=== PATIENT | female | born 1985 | race Caucasian/White ===

== ENCOUNTER 2022-12-09 19:18 | Observation (INO) ==
--- NOTE | 2022-12-09 20:00 | Emergency Department Note ---
Impression & Plan Suicidal ideation, Diabetes mellitus, COVID-19, Acute hyperglycemia ED Provider Note Name: KAMI DARBY Age: 36 Sex: F Arrives Via: Walk-In Informant: Patient, boyfriend, girlfriend ED Provider: Thang River MD Chief Complaint: Suicidal ideation Impression: As per impressions above Medical Decision Makin-year-old female with a history of bipolar, borderline personality, type 2 diabetes, PTSD, anxiety, PNES, arrives for evaluation of suicidal ideation with plan to throw herself down a flight of stairs. Patient was just released a few days ago from another inpatient psychiatric facility and reportedly has been in multiple facilities over the last year for suicidal ideation. Patient was noted to be COVID-positive on discussion she admits she had a sore throat about 7 days ago that lasted 4 to 5 days. She had been exposed to someone in the psychiatric facility that may have had COVID. Patient is otherwise medically clear. She is a bit hyperglycemic but this is consistent with not taking her metformin though she was willing to take it here. Given her positive COVID status and suicidal ideation and voluntary status she is willing to be hospitalized at this facility. Hospitalist consulted for further management. Triage/Nursing Notes reviewed by Me Differentials:Mood disorder, infection, hypoglycemia, electrolyte abnormalities, cardiac sources, intracerebral event, toxicologic, trauma, neurologic, as well as other pathologies. Vital Signs: reviewed and remarkable for no significant abnormalities Interventions: Metformin 500 mg p.o. Labs:Reviewed and remarkable for hyperglycemia and positive COVID test. See other labs on chart reviewed by me Consults:Dr. Reilly the [facility] service Plan: Disposition:Hospitalization. Condition: Good History of Present Illness:36-year-old female arrives for evaluation of suicidal ideation. Patient states she was recently in an inpatient psychiatric facility where they stopped all of her medicines. She states she is getting significantly worse and wants to kill herself. She states she is severely depressed and anxious. Her plan is through herself all stairs/balcony to kill herself. She has already figured out which stairs she would use. Patient denies any actual attempt at killing herself quite yet but has been scratching at her arms. No attempt at harming yourself by overdose. She does admit alcohol use a few days ago as well as marijuana yesterday. She states inciting event is due to issues with recent divorce. Patient arrives with her boyfriend and girlfriend who are both from the area and thus had brought her from the [facility] for evaluation at our facility. Past History: Bipolar, borderline personality, type 2 diabetes, PTSD, anxiety, PNES Home Medications:See Below Allergies:PNC Vitals:Blood Pressure: 129/87, Pulse 94, RR 18, T 36.8C, O2 94% on RA Physical Exam: GENERAL: Patient is sad appearing and in minimal distress. RESPIRATORY: No dyspnea. Clear to auscultation and equal bilaterally. No wheeze, no rhonchi. CARDIOVASCULAR: Regular rate and rhythm.No murmurs, rubs, gallops appreciated. EXTREMITIES: Normal motion all extremities, no cyanosis, no edema. Left lower leg in an Aircast ankle boot which patient states she uses when her ankle and foot are hurting her. No recent injury or fracture. NEUROLOGIC: Alert and oriented, no focal neurologic deficit appreciated SKIN: No rash, no jaundice, no diaphoresis. PSYCH: Patient admits suicidal ideation to kill self by throwing off stairs/balcony. Admits depression anxiety. GCS: 15 ED Course: Times/Reassessments: Repeat evaluation patient stable she is agreeable to hospitalization for further management. Thang River MD Past Med/Surg History Medical History (Updated 12/10/22 @ 01:53 by Thang River MD) Ankle pain, left Anxiety and depression Diabetes mellitus GERD (gastroesophageal reflux disease) Hyperlipidemia Suicidal ideation Social History Smoking Status: Never smoker Feels Safe at Home: Yes Gender Identity: Female Allergies Allergies Allergy/AdvReac Type Severity Reaction Status Date / Time Penicillins Allergy Vomiting Verified 12/09/22 20:57 Home Meds Home Medications Medication Instructions Recorded Confirmed Lamictal 150 mg PO BID 12/09/22 12/09/22 aripiprazole 20 mg tablet (Abilify) 20 mg PO QAM 12/09/22 12/09/22 atorvastatin 20 mg PO 1XD 12/09/22 12/09/22 buspirone 10 mg tablet 10 mg PO TID 12/09/22 12/09/22 meloxicam 15 mg PO 1XD 12/09/22 12/09/22 metformin 500 mg tablet 500 mg PO BID 12/09/22 12/09/22 mirtazapine 0.5 - 1 tab PO HS 12/09/22 12/09/22 naltrexone See Rx Instructions .Route .COMPLEX 12/09/22 12/09/22 paroxetine HCl 60 mg PO 1XD Anxiety 12/09/22 12/09/22 topiramate 100 mg PO BID 12/09/22 12/09/22 Results & Data (ED) Vital Signs Vital Signs - 24 hr 12/09/22 19:20 12/09/22 19:36 12/09/22 23:25 Temperature 36.4 C L Temperature Source Temporal Artery Scan Pulse Rate 96 H Pulse Rate [Finger] Pulse Rhythm Regular Pulse Rhythm [Finger] Pulse Strength Normal Respiratory Rate 20 16 Respiratory Effort / Characteristics Non-Labored Spontaneous Non-Labored Respiratory Depth Normal Normal Respiratory Pattern Regular Blood Pressure 141/92 H Blood Pressure [Left Arm] Blood Pressure Mean 108 Blood Pressure Mean [Left Arm] Blood Pressure Position Sitting Blood Pressure Position [Left Arm] Pulse Oximetry 96 96 Oxygen Delivery Method Room Air Room Air Sepsis Recent Fever Within 48 Hours No Sepsis New/Unexplained Change in Mental Status N/A Sepsis Action Taken by Nursing No Action Required 12/09/22 23:59 Temperature 36.8 C Temperature Source Oral Pulse Rate Pulse Rate [Finger] 94 H Pulse Rhythm Pulse Rhythm [Finger] Regular Pulse Strength Respiratory Rate 18 Respiratory Effort / Characteristics Non-Labored Respiratory Depth Normal Respiratory Pattern Regular Blood Pressure Blood Pressure [Left Arm] 129/87 Blood Pressure Mean Blood Pressure Mean [Left Arm] 101 Blood Pressure Position Blood Pressure Position [Left Arm] Sitting Pulse Oximetry 94 Oxygen Delivery Method Room Air Sepsis Recent Fever Within 48 Hours Sepsis New/Unexplained Change in Mental Status Sepsis Action Taken by Nursing Laboratory Data 12/09/22 19:34 12/09/22 19:34 Lab Results 12/09/22 12/09/22 12/09/22 Range/Units 19:34 19:34 19:34 WBC 14.74 H (4.8-10.8) K/ul RBC 4.14 L (4.20-5.40) M/uL Hgb 12.8 (12.0-16.0) g/dl Hct 35.9 L (37.0-47.0) % MCV 86.7 (80.0-100.0) fL MCH 30.9 (25.0-34.0) pg MCHC 35.7 (32.0-36.0) g/dL RDW Std Deviation 37.2 (36.4-46.3) fL RDW Coeff of Nerissa 11.8 (11.5-14.5) % Plt Count 390 (130-400) K/uL MPV 10.1 (9.4-12.4) fL Immature Gran % (Auto) 0.7 % Neut % (Auto) 51.0 % Lymph % (Auto) 41.0 % [place] % (Auto) 4.2 % Eos % (Auto) 2.8 % Baso % (Auto) 0.3 % Neut # (Auto) 7.51 H (1.40-6.50) K/uL Lymph # (Auto) 6.05 H (1.2-3.4) K/uL [place] # (Auto) 0.62 H (0.11-0.59) K/uL Eos # (Auto) 0.42 (0-0.50) K/uL Baso # (Auto) 0.04 (0-0.2) K/uL Immature Gran # (Auto) 0.10 (0.01-0.20) K/uL Sodium 134 L (136-145) mmol/L Potassium 3.5 (3.5-5.1) mmol/L Chloride 99 (98-107) mmol/L Carbon Dioxide 25 (21-32) mmol/L Anion Gap 10 (3-11) BUN 18 (6-23) mg/dl Creatinine 0.73 (0.6-1.2) mg/dl Est Cr Clr Drug Dosing 124.2 ml/min Est GFR ( Amer) 123.7 ml/min Est GFR (Non-Af Amer) 106.7 ml/min BUN/Creatinine Ratio 24.7 H (10-20) Glucose 334 H* (70-99(Fasting)) mg/dl Calcium 9.1 (8.6-10.3) mg/dl Total Bilirubin 0.2 (0.2-1.0) mg/dl AST 19 (13-39) U/L ALT 35 (7-52) U/L Alkaline Phosphatase 109 H (34-104) U/L Total Protein 7.2 (6.0-8.3) gm/dl Albumin 4.3 (3.4-5.0) gm/dl Globulin 2.9 (2.5-4.0) gm/dl Albumin/Globulin Ratio 1.5 (0.9-2) TSH 2.477 (0.300-4.500) uIu/ml Urine Color Urine Appearance (Clear) Urine pH (4.5-7.5) Ur Specific [place] (1.000-1.030) Urine Protein (Negative) Urine Glucose (UA) (Negative) Urine Ketones (Negative) Urine Blood (Negative) Urine Nitrite (Negative) Urine Bilirubin (Negative) Urine Urobilinogen (Negative) Ur Leukocyte Esterase (Negative) Urine Test (Negative) Salicylates (3.0-30) mg/dl Urine Opiates Screen (Neg) Ur Methadone, Qual (Neg) Acetaminophen (10-30) ug/ml Urine Barbiturates (Neg) Ur Phencyclidine (PCP) (Neg) U Amphetamin/Meth Scrn (Neg) MDMA (Ecstasy) Screen (Neg) U Benzodiazepines Scrn (Neg) Ur Cocaine Metabolite (Neg) U Marijuana (THC) Screen (Neg) Ethyl Alcohol mg/dL (<10.0) mg/dl SARS-CoV-2, RNA, NAAT (NEGATIVE) 12/09/22 12/09/22 12/09/22 Range/Units 19:34 19:34 19:34 WBC (4.8-10.8) K/ul RBC (4.20-5.40) M/uL Hgb (12.0-16.0) g/dl Hct (37.0-47.0) % MCV (80.0-100.0) fL MCH (25.0-34.0) pg MCHC (32.0-36.0) g/dL RDW Std Deviation (36.4-46.3) fL RDW Coeff of Nerissa (11.5-14.5) % Plt Count (130-400) K/uL MPV (9.4-12.4) fL Immature Gran % (Auto) % Neut % (Auto) % Lymph % (Auto) % [place] % (Auto) % Eos % (Auto) % Baso % (Auto) % Neut # (Auto) (1.40-6.50) K/uL Lymph # (Auto) (1.2-3.4) K/uL [place] # (Auto) (0.11-0.59) K/uL Eos # (Auto) (0-0.50) K/uL Baso # (Auto) (0-0.2) K/uL Immature Gran # (Auto) (0.01-0.20) K/uL Sodium (136-145) mmol/L Potassium (3.5-5.1) mmol/L Chloride (98-107) mmol/L Carbon Dioxide (21-32) mmol/L Anion Gap (3-11) BUN (6-23) mg/dl Creatinine (0.6-1.2) mg/dl Est Cr Clr Drug Dosing ml/min Est GFR ( Amer) ml/min Est GFR (Non-Af Amer) ml/min BUN/Creatinine Ratio (10-20) Glucose (70-99(Fasting)) mg/dl Calcium (8.6-10.3) mg/dl Total Bilirubin (0.2-1.0) mg/dl AST (13-39) U/L ALT (7-52) U/L Alkaline Phosphatase (34-104) U/L Total Protein (6.0-8.3) gm/dl Albumin (3.4-5.0) gm/dl Globulin (2.5-4.0) gm/dl Albumin/Globulin Ratio (0.9-2) TSH (0.300-4.500) uIu/ml Urine Color Urine Appearance (Clear) Urine pH (4.5-7.5) Ur Specific [place] (1.000-1.030) Urine Protein (Negative) Urine Glucose (UA) (Negative) Urine Ketones (Negative) Urine Blood (Negative) Urine Nitrite (Negative) Urine Bilirubin (Negative) Urine Urobilinogen (Negative) Ur Leukocyte Esterase (Negative) Urine Test (Negative) Salicylates < 3.0 L (3.0-30) mg/dl Urine Opiates Screen (Neg) Ur Methadone, Qual (Neg) Acetaminophen < 3 L (10-30) ug/ml Urine Barbiturates (Neg) Ur Phencyclidine (PCP) (Neg) U Amphetamin/Meth Scrn (Neg) MDMA (Ecstasy) Screen (Neg) U Benzodiazepines Scrn (Neg) Ur Cocaine Metabolite (Neg) U Marijuana (THC) Screen (Neg) Ethyl Alcohol mg/dL < 10.0 (<10.0) mg/dl SARS-CoV-2, RNA, NAAT POSITIVE A* (NEGATIVE) 12/09/22 12/09/22 12/09/22 Range/Units 19:42 19:42 19:42 WBC (4.8-10.8) K/ul RBC (4.20-5.40) M/uL Hgb (12.0-16.0) g/dl Hct (37.0-47.0) % MCV (80.0-100.0) fL MCH (25.0-34.0) pg MCHC (32.0-36.0) g/dL RDW Std Deviation (36.4-46.3) fL RDW Coeff of Nerissa (11.5-14.5) % Plt Count (130-400) K/uL MPV (9.4-12.4) fL Immature Gran % (Auto) % Neut % (Auto) % Lymph % (Auto) % [place] % (Auto) % Eos % (Auto) % Baso % (Auto) % Neut # (Auto) (1.40-6.50) K/uL Lymph # (Auto) (1.2-3.4) K/uL [place] # (Auto) (0.11-0.59) K/uL Eos # (Auto) (0-0.50) K/uL Baso # (Auto) (0-0.2) K/uL Immature Gran # (Auto) (0.01-0.20) K/uL Sodium (136-145) mmol/L Potassium (3.5-5.1) mmol/L Chloride (98-107) mmol/L Carbon Dioxide (21-32) mmol/L Anion Gap (3-11) BUN (6-23) mg/dl Creatinine (0.6-1.2) mg/dl Est Cr Clr Drug Dosing ml/min Est GFR ( Amer) ml/min Est GFR (Non-Af Amer) ml/min BUN/Creatinine Ratio (10-20) Glucose (70-99(Fasting)) mg/dl Calcium (8.6-10.3) mg/dl Total Bilirubin (0.2-1.0) mg/dl AST (13-39) U/L ALT (7-52) U/L Alkaline Phosphatase (34-104) U/L Total Protein (6.0-8.3) gm/dl Albumin (3.4-5.0) gm/dl Globulin (2.5-4.0) gm/dl Albumin/Globulin Ratio (0.9-2) TSH (0.300-4.500) uIu/ml Urine Color Yellow Urine Appearance Clear (Clear) Urine pH 6.5 (4.5-7.5) Ur Specific [place] 1.038 H (1.000-1.030) Urine Protein Negative (Negative) Urine Glucose (UA) 3+ H (Negative) Urine Ketones Negative (Negative) Urine Blood Negative (Negative) Urine Nitrite Negative (Negative) Urine Bilirubin Negative (Negative) Urine Urobilinogen Negative (Negative) Ur Leukocyte Esterase Negative (Negative) Urine Test Negative (Negative) Salicylates (3.0-30) mg/dl Urine Opiates Screen Neg (Neg) Ur Methadone, Qual Neg (Neg) Acetaminophen (10-30) ug/ml Urine Barbiturates Neg (Neg) Ur Phencyclidine (PCP) Neg (Neg) U Amphetamin/Meth Scrn Neg (Neg) MDMA (Ecstasy) Screen Neg (Neg) U Benzodiazepines Scrn Neg (Neg) Ur Cocaine Metabolite Neg (Neg) U Marijuana (THC) Screen Pos H (Neg) Ethyl Alcohol mg/dL (<10.0) mg/dl SARS-CoV-2, RNA, NAAT (NEGATIVE) Administered Medications Insulin Aspart (Insulin Aspart Per Unit Charge) 0 units SC ACHS ROGER Stop: 01/09/23 01:29 Last Admin: 12/10/22 01:43 Dose: Not Given Documented By: CAROL ANN Co-signed By: ANTIONE Discontinued Medications Metformin HCl (Metformin Hcl 500 Mg Tab) 500 mg PO NOW STA Stop: 12/09/22 20:47 Last Admin: 12/09/22 21:16 Dose: 500 mg Documented By: AYALA Pantoprazole Sodium (Pantoprazole 40 Mg Tab) 40 mg PO NOW ONE Stop: 12/09/22 23:54 Last Admin: 12/10/22 00:22 Dose: 40 mg Documented By: CAROL ANN Discharge Plan Visit Data Chief Complaint: Mental Health Evaluation Stated Complaint: SUICIDAL IDEATIONS, HOMICIDAL IDEATIONS, ED Provider: Thang River Discharge Problem: Suicidal ideation, Diabetes mellitus, COVID-19, Acute hyperglycemia Patient Disposition: Admitted As Inpatient Discharge Instructions Interventions: ED Discharge Assessment Last Done: 12/10/22 01:06
[2022-12-09 20:28] LABS: Hematocrit (blood only) 35.9 % (37.0-47.0); Hemoglobin 12.8 g/dl (12.0-16.0); Mean Corpuscular Hemoglobin 30.9 pg (25.0-34.0); Mean Corpuscular Hgb Conc 35.7 g/dL (32.0-36.0); Mean Corpuscular Volume 86.7 fL (80.0-100.0); Mean Platelet Volume 10.1 fL (9.4-12.4); Platelet Count 390 K/uL (130-400); RDW Coefficient of Variation 11.8 % (11.5-14.5); RDW Standard Deviation 37.2 fL (36.4-46.3); Red Blood Count 4.14 M/uL (4.20-5.40); White Blood Count 14.74 K/ul (4.8-10.8)
[2022-12-09 20:38] LABS: Appearance Urine Clear (Clear); Bilirubin Urine Negative (Negative); Blood Urine Negative (Negative); Color Urine Yellow; Glucose Urine UA 3+ (Negative); Ketones Urine Negative (Negative); Leukocyte Esterase Urine Negative (Negative); Nitrite Urine Negative (Negative); Protein Urine Negative (Negative); Specific Gravity Urine 1.038 (1.000-1.030); Urobilinogen Urine Negative (Negative); pH Urine 6.5 (4.5-7.5)
[2022-12-09 20:41] LABS: Pregnancy Test, Urine Negative (Negative)
[2022-12-09 20:44] LABS: Acetaminophen < 3 ug/ml (10-30); Salicylate < 3.0 mg/dl (3.0-30)
[2022-12-09 20:45] LABS: Albumin Globulin Ratio 1.5 (0.9-2); Albumin Level 4.3 gm/dl (3.4-5.0); BUN Creatinine Ratio 24.7 (10-20); Bilirubin,Total 0.2 mg/dl (0.2-1.0); Calcium 9.1 mg/dl (8.6-10.3); Creatinine Clr Calc Pharmacy 124.2 ml/min; Est GFR (African American) 123.7 ml/min; Est GFR (Non-African American) 106.7 ml/min; Globulin 2.9 gm/dl (2.5-4.0); Potassium 3.5 mmol/L (3.5-5.1); Total Protein 7.2 gm/dl (6.0-8.3)
[2022-12-09] MEDS ORDERED: metFORMIN HCL 500 MG TAB PO STA (20:46)
[2022-12-09 20:51] LABS: Basophils # (auto) 0.04 K/uL (0-0.2); Basophils % (auto) 0.3 %; Eosinophils # (auto) 0.42 K/uL (0-0.50); Eosinophils % (auto) 2.8 %; Immature Granulocytes % (auto) 0.7 %; Lymphocytes # (auto) 6.05 K/uL (1.2-3.4); Monocytes # (auto) 0.62 K/uL (0.11-0.59); Monocytes % (auto) 4.2 %; Neutrophils # (auto) 7.51 K/uL (1.40-6.50)
[2022-12-09 21:20] LABS: Amphetamines+Metham, Urine Neg (Neg); Barbiturates, Urine Neg (Neg); Benzodiazepine, Urine Neg (Neg); Cocaine, Urine Neg (Neg); MDMA (Ecstacy), Urine Neg (Neg); Methadone, Urine Neg (Neg); Opiate, Urine Neg (Neg); Phencyclidine, Urine Neg (Neg)
[2022-12-09] MEDS ORDERED: PANTOprazole 40 MG TAB PO ONE (23:53)
--- NOTE | 2022-12-10 00:05 | History & Physical Report ---
Date of Service December 10, 2022 Assessment & Plan (1) Suicidal ideation: (2) Diabetes mellitus: (3) Hyperlipidemia: (4) Anxiety and depression: (5) GERD (gastroesophageal reflux disease): (6) COVID-19: (7) Ankle pain, left: (8) Bipolar disorder: (9) Borderline personality disorder: Plan Suicidal ideation/bipolar disorder/ borderline personality disorder/anxiety and depression- Patient reports that she was most recently admitted to a mental health unit from November 28 through December 06. She has not taken any of her medications since she was discharged on December 06. We will hold on any medications at this point: Abilify, buspirone, Lamictal, mirtazapine, naltrexone, paroxetine and topiramate Consult psychiatry Diabetes mellitus- Glucose 334 on admission Check hemoglobin A1c Resume her metformin [address] twice daily Place on Accu-Cheks with SSI Severe GERD- She describes significant reflux up to the point of causing a sore throat and regurgitation Start pantoprazole 40 mg p.o. x1 tonight and then every morning Hyperlipidemia- Resume atorvastatin when symptoms otherwise improve Left ankle pain- History of failed surgery 8 years ago Presently wearing boot When psychiatric issues are addressed, consider consult orthopedic surgery for their opinion COVID-19- asymptomatic, found on screening for admission reports that she was exposed to a patient with COIVD at the last facility she was in COVID-19 precautions, sore throat is unrelated and present well before for months no specific treatment otherwise indicated History of Present Illness Chief Complaint: The patient was brought to the emergency emergency department for medical clearance for admission to the mental health unit, however, COVID-19 screening was positive, and she is thus referred to the hospitalist service. She r eportedly had threatened to throw herself down a flight of stairs Primary Care Provider: Davey Bustillos, The patient is a 36-year-old female with past medical history including diabetes mellitus, hyperlipidemia, bipolar disorder, borderline personality disorder, anxiety and depression, multiple admission for suicidal ideation at other facilities, who presents to the emergency department as noted above. She reports that she was recently in a mental health unit from November 28 through December 06, and since that time she has been home, has not taken any of her medications. She was brought to the emergency department due to concerns regarding suicidal ideation. Her COVID-19 screening test was positive, however, patient has no respiratory symptoms or otherwise referable to COVID-19. She does have severe reflux, and is not unable to lie backwards in bed due to severe substernal burning and sore throat. She also complains of ambulatory dysfunction ever since a failed orthopedic surgery on her left foot and ankle about 8 years ago. She describes her left ankle turns and twists on a regular basis when not wearing the boot. Allergies Allergy/AdvReac Type Severity Reaction Status Date / Time Penicillins Allergy Vomiting Verified 12/09/22 20:57 Home Medications Medication Instructions Recorded Confirmed Type Lamictal 150 mg PO BID 12/09/22 12/09/22 History aripiprazole 20 mg tablet (Abilify) 20 mg PO QAM 12/09/22 12/09/22 History atorvastatin 20 mg PO 1XD 12/09/22 12/09/22 History buspirone 10 mg tablet 10 mg PO TID 12/09/22 12/09/22 History meloxicam 15 mg PO 1XD 12/09/22 12/09/22 History metformin 500 mg tablet 500 mg PO BID 12/09/22 12/09/22 History mirtazapine 0.5 - 1 tab PO HS 12/09/22 12/09/22 History naltrexone See Rx Instructions .Route .COMPLEX 12/09/22 12/09/22 History paroxetine HCl 60 mg PO 1XD Anxiety 12/09/22 12/09/22 History topiramate 100 mg PO BID 12/09/22 12/09/22 History Past Med/Surg History Medical History (Updated 12/10/22 @ 02:25 by Colt Reilly MD) Ankle pain, left Anxiety and depression Bipolar disorder Borderline personality disorder Diabetes mellitus GERD (gastroesophageal reflux disease) Hyperlipidemia Suicidal ideation Social History Smoking Status: Never smoker Feels Safe at Home: Yes Gender Identity: Female Review of Systems Review of Systems: The patient denies chest pain, palpitations, shortness of breath, dyspnea on exertion, cough, lower extremity swelling, fevers, chills, sweats, nausea, vomiting, diarrhea , constipation, abdominal pain, pelvic pain, blood in urine or stool, dysuria, urinary frequency or urgency, lightheadedness, dizziness, headache, memory loss, loss of consciousness, rash, abnormal bruising or bleeding, imbalance, focal or generalized weakness, numbness or tingling in arms or legs, generalized arthralgias or myalgias, back or neck pain, or night sweats. The review of systems is otherwise negative other than for that already noted above, and at least 10 systems have been reviewed. Physical Exam Physical Exam: The patient is awake, alert and oriented 3, well developed and well nourished, normocephalic and atraumatic, sitting upright in bed and in no acute distress. HEENT--PERRL, EOMI, mucous membranes and oropharynx normal. Neck--supple. No JVD. No bruits. Thyroid normal, trachea midline, no adenopathy. Heart--normal S1 and S2. No murmurs, rubs or gallops. Lungs--clear bilaterally, no respiratory distress, no accessory muscle use. Abdomen--normal bowel sounds and soft. Nontender. Nondistended, no hernias or masses, no organomegaly. Extremities--no cyanosis or clubbing. No edema. Dermatologic--normal skin turgor, normal color, no abnormal lymph nodes, no rash. Neurologic--cranial nerves II through XII grossly intact. Rheumatologic--limited examination of left lower extremity due to boot Psychiatric--normal affect. Results & Data Results & Data Vital Signs (Past 12 Hours) Vital Signs Temp Pulse Pulse Resp BP BP Pulse Ox 12/09/22 23:59 36.8 C 94 H 18 129/87 94 12/09/22 23:25 16 12/09/22 19:36 96 12/09/22 19:20 36.4 C L 96 H 20 141/92 H 96 O2 Del Method 12/09/22 23:59 Room Air 12/09/22 23:25 12/09/22 19:36 Room Air 12/09/22 19:20 Room Air Laboratory Results Laboratory Results WBC 14.74 K/ul (4.8-10.8) H 12/09/22 19:34 RBC 4.14 M/uL (4.20-5.40) L 12/09/22 19:34 Hgb 12.8 g/dl (12.0-16.0) 12/09/22 19:34 Hct 35.9 % (37.0-47.0) L 12/09/22 19:34 MCV 86.7 fL (80.0-100.0) 12/09/22 19:34 MCH 30.9 pg (25.0-34.0) 12/09/22:34 MCHC 35.7 g/dL (32.0-36.0) 12/09/22:34 RDW Std Deviation 37.2 fL (36.4-46.3) 12/09/22:34 RDW Coeff of Nerissa 11.8 % (11.5-14.5) 12/09/22:34 Plt Count 390 K/uL (130-400) 12/09/22:34 MPV 10.1 fL (9.4-12.4) 12/09/22:34 Immature Gran % (Auto) 0.7 % 12/09/22:34 Neut % (Auto) 51.0 % 12/09/22 19:34 Lymph % (Auto) 41.0 % 12/09/22 19:34 [place] % (Auto) 4.2 % 12/09/22 19:34 Eos % (Auto) 2.8 % 12/09/22 19:34 Baso % (Auto) 0.3 % 12/09/22 19:34 Neut # (Auto) 7.51 K/uL (1.40-6.50) H 12/09/22 19:34 Lymph # (Auto) 6.05 K/uL (1.2-3.4) H 12/09/22 19:34 [place] # (Auto) 0.62 K/uL (0.11-0.59) H 12/09/22 19:34 Eos # (Auto) 0.42 K/uL (0-0.50) 12/09/22 19:34 Baso # (Auto) 0.04 K/uL (0-0.2) 12/09/22 19:34 Immature Gran # (Auto) 0.10 K/uL (0.01-0.20) 12/09/22 19:34 Sodium 134 mmol/L (136-145) L 12/09/22 19:34 Potassium 3.5 mmol/L (3.5-5.1) 12/09/22 19:34 Chloride 99 mmol/L (98-107) 12/09/22 19:34 Carbon Dioxide 25 mmol/L (21-32) 12/09/22 19:34 Anion Gap 10 (3-11) 12/09/22 19:34 BUN 18 mg/dl (6-23) 12/09/22 19:34 Creatinine 0.73 mg/dl (0.6-1.2) 12/09/22 19:34 Est Cr Clr Drug Dosing 124.2 ml/min 12/09/22 19:34 Est GFR ( Amer) 123.7 ml/min 12/09/22 19:34 Est GFR (Non-Af Amer) 106.7 ml/min 12/09/22 19:34 BUN/Creatinine Ratio 24.7 (10-20) H 12/09/22 19:34 Glucose 334 mg/dl (70-99(Fasting)) H* 12/09/22 19:34 Calcium 9.1 mg/dl (8.6-10.3) 12/09/22 19:34 Total Bilirubin 0.2 mg/dl (0.2-1.0) 12/09/22 19:34 AST 19 U/L (13-39) 12/09/22 19:34 ALT 35 U/L (7-52) 12/09/22 19:34 Alkaline Phosphatase 109 U/L (34-104) H 12/09/22 19:34 Total Protein 7.2 gm/dl (6.0-8.3) 12/09/22 19:34 Albumin 4.3 gm/dl (3.4-5.0) 12/09/22 19:34 Globulin 2.9 gm/dl (2.5-4.0) 12/09/22 19:34 Albumin/Globulin Ratio 1.5 (0.9-2) 12/09/22 19:34 TSH 2.477 uIu/ml (0.300-4.500) 12/09/22 19:34 Urine Color Yellow 12/09/22 19:42 Urine Appearance Clear (Clear) 12/09/22 19:42 Urine pH 6.5 (4.5-7.5) 12/09/22 19:42 Ur Specific [place] 1.038 (1.000-1.030) H 12/09/22 19:42 Urine Protein Negative (Negative) 12/09/22 19:42 Urine Glucose (UA) 3+ (Negative) H 12/09/22 19:42 Urine Ketones Negative (Negative) 12/09/22 19:42 Urine Blood Negative (Negative) 12/09/22 19:42 Urine Nitrite Negative (Negative) 12/09/22 19:42 Urine Bilirubin Negative (Negative) 12/09/22 19:42 Urine Urobilinogen Negative (Negative) 12/09/22 19:42 Ur Leukocyte Esterase Negative (Negative) 12/09/22 19:42 Urine Test Negative (Negative) 12/09/22 19:42 Salicylates < 3.0 mg/dl (3.0-30) L 12/09/22 19:34 Urine Opiates Screen Neg (Neg) 12/09/22 19:42 Ur Methadone, Qual Neg (Neg) 12/09/22 19:42 Acetaminophen < 3 ug/ml (10-30) L 12/09/22 19:34 Urine Barbiturates Neg (Neg) 12/09/22 19:42 Ur Phencyclidine (PCP) Neg (Neg) 12/09/22 19:42 U Amphetamin/Meth Scrn Neg (Neg) 12/09/22 19:42 MDMA (Ecstasy) Screen Neg (Neg) 12/09/22 19:42 U Benzodiazepines Scrn Neg (Neg) 12/09/22 19:42 Ur Cocaine Metabolite Neg (Neg) 12/09/22 19:42 U Marijuana (THC) Screen Pos (Neg) H 12/09/22 19:42 Ethyl Alcohol mg/dL < 10.0 mg/dl (<10.0) 12/09/22 19:34 SARS-CoV-2, RNA, NAAT POSITIVE (NEGATIVE) A* 12/09/22 19:34 Code Status & VTE Plan Code Status Full code VTE Prophylaxis Plan VTE Prophylaxis will be ordered: Yes PG Care Time/CCT Total # of Minutes Spent Total Time Spent with Patient: Total time spent is greater than 50% in coordination of care (as documented) at patient's floor/unit and/or counseling patient: Coding Level of Care Code 59832 INT INP/OBS CARE 3/75MIN Diagnoses Suicidal ideation R45.851 Diabetes mellitus E11.9 Hyperlipidemia E78.5 Anxiety and depression F41.9; F32.A GERD (gastroesophageal reflux disease) K21.9 COVID-19 U07.1 Ankle pain, left M25.572 Bipolar disorder F31.9 Borderline personality disorder F60.3
[2022-12-10] MEDS ORDERED: CARBOHYDRATES FOR HYPOGLYCEMIA PO PRN (01:08)
[2022-12-10] MEDS ORDERED: GLUCOSE 10 TAB/TUBE PO PRN (01:08)
[2022-12-10] MEDS ORDERED: ONDANSETRON INJ 2 MG/ML 2 ML VIAL IV PRN (01:08)
[2022-12-10] MEDS ORDERED: ACETAMINOPHEN 325 MG TAB PO PRN (01:08)
[2022-12-10] MEDS ORDERED: GLUCAGON FOR INJ 1 MG VIAL SQ PRN (01:08)
[2022-12-10] MEDS ORDERED: GLUCOSE 40% GEL 15 GM TUBE PO PRN (01:08)
[2022-12-10] MEDS ORDERED: DEXTROSE 50% 50 ML SYRINGE IV PRN (01:08)
[2022-12-10] MEDS: INSULIN ASPART PER UNIT CHARGE SC SCH ×3 (01:43→11:14)
[2022-12-10] MEDS: metFORMIN HCL 500 MG TAB PO SCH ×2 (07:23→16:26)
[2022-12-10 08:35] LABS: Estimated Average Glucose 177 mg/dl; Hemoglobin A1C 7.8 % (4.5-5.6)
[2022-12-10] MEDS ORDERED: LANTUS PER UNIT CHARGE SQ SCH (10:45)
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
--- NOTE | 2022-12-10 14:45 | Hospitalist Progress Note ---
Date of Service December 10, 2022 Assessment & Plan (1) Suicidal ideation: Plan: Supportive care. Behavioral health assessment. Probable return to inpatient psych facility (2) Diabetes mellitus: Plan: Refusing insulin coverage. ADA diet. Resumed metformin. Sliding scale coverage if she will allow it (3) Hyperlipidemia: Plan: Stable. Continue current medical manage (4) Anxiety and depression: Plan: Await psychiatry evaluation and recommendation (5) GERD (gastroesophageal reflux disease): Plan: Stable. Continue PPI therapy (6) COVID-19: Plan: Positive test but asymptomatic. (7) Ankle pain, left: Plan: Chronic. She wears a walking boot (8) Bipolar disorder: Plan: By history. Await psychiatry evaluation and recommendations (9) Borderline personality disorder: Plan: By history. Await psychiatry evaluation and recommendations Plan Anticipate discharge back to inpatient psychiatric facility. Admission and Anticipated Discharge Date Admission Date: December 10, 2022 Subjective Alert and appears oriented at the time of my rounds. She is refusing to take any insulin whatsoever. Metformin has been restarted. Psychiatry evaluation pending. Apparently she was hospitalized as an inpatient in a psychiatric facility from November 28 through December 06. Review of Systems Review of Systems: Constitutional-no fever or chills ENT-no blurred vision, no double vision, no epistaxis, no sore throat Respiratory-no cough, no wheezing, no shortness of breath Cardiac-no palpitations, no chest pain, no syncope GI-no nausea, vomiting, diarrhea, melena, hematochezia -no urinary retention, no urinary incontinence, no dysuria, no hematuria Musculoskeletal-no joint pain, no muscle tenderness Skin-no bruising, no rashes, no pruritus Neuro-no isolated weakness, no paresthesia Psych- depressed affect. Suicidal ideation Physical Exam Physical Exam: General-alert and oriented x3, no fevers, no chills HEENT-head atraumatic and normocephalic, pupils equal and reactive to light, extraocular muscles intact Neck-no lymphadenopathy or thyromegaly, trachea midline Chest-clear to auscultation percussion. No rales wheezing or rhonchi Cardiac-regular rate and rhythm, normal S1 and S2 Abdomen-normal bowel sounds, nontender, no hepatosplenomegaly Extremities-no cyanosis, clubbing, or edema Neuro-cranial nerves II through XII intact, motor and sensory function within normal limits, strength symmetrical , no focal deficits Psych-depressed affect. Suicidal ideation Results & Data Results & Data Vital Signs (Past 12 Hours) Vital Signs Temp Pulse Pulse Resp BP Pulse Ox O2 Del Method 12/10/22 08:30 36.5 C 85 18 95/66 L 97 Room Air 12/10/22 08:17 36.5 C 86 16 95/66 L 97 Room Air 12/10/22 07:10 85 18 133/78 98 Room Air 12/10/22 03:00 Room Air Laboratory Results 12/09/22 19:34 12/09/22 19:34 PG Care Time/CCT Total # of Minutes Spent Total Time Spent with Patient: Total time spent is greater than 50% in coordination of care (as documented) at patient's floor/unit and/or counseling patient: Coding Level of Care Code 29255 SUB INP/OBS CARE 3/50MIN Diagnoses Suicidal ideation R45.851 Diabetes mellitus E11.9; Z79.4 Diabetes mellitus complication status: without complication Diabetes mellitus mcc insulin use: with oil heaterman use Diabetes mellitus type: type 2 Hyperlipidemia E78.5 Anxiety and depression F41.9; F32.A GERD (gastroesophageal reflux disease) K21.9 COVID-19 U07.1 Ankle pain, left M25.572 Bipolar disorder F31.9 Borderline personality disorder F60.3 (2) Diabetes mellitus Diabetes mellitus complication status: without complication Diabetes mellitus oil heaterman insulin use: with mcc use Diabetes mellitus type: type 2 Qualified Code(s): E11.9 - Type 2 diabetes mellitus without complications; Z79.4 - intermediate teacher (current) use of insulin
[2022-12-10 14:56] LABS: Hematocrit (blood only) 37.3 % (37.0-47.0); Hemoglobin 12.9 g/dl (12.0-16.0); Mean Corpuscular Hemoglobin 30.2 pg (25.0-34.0); Mean Corpuscular Hgb Conc 34.6 g/dL (32.0-36.0); Mean Corpuscular Volume 87.4 fL (80.0-100.0); Platelet Count 392 K/uL (130-400); RDW Coefficient of Variation 11.9 % (11.5-14.5); RDW Standard Deviation 37.4 fL (36.4-46.3); Red Blood Count 4.27 M/uL (4.20-5.40); White Blood Count 12.41 K/ul (4.8-10.8)
[2022-12-10 15:11] LABS: Albumin Level 3.9 gm/dl (3.4-5.0); BUN Creatinine Ratio 19.4 (10-20); Calcium 9.1 mg/dl (8.6-10.3); Creatinine Clr Calc Pharmacy 146.2 ml/min; Est GFR (African American) 135.4 ml/min; Est GFR (Non-African American) 116.8 ml/min; Magnesium 1.6 mg/dl (1.7-2.4); Potassium 3.5 mmol/L (3.5-5.1)
[2022-12-10 15:43] LABS: Basophils # (auto) 0.04 K/uL (0-0.2); Basophils % (auto) 0.3 %; Eosinophils # (auto) 0.38 K/uL (0-0.50); Eosinophils % (auto) 3.1 %; Immature Granulocytes # (auto) 0.11 K/uL (0.01-0.20); Immature Granulocytes % (auto) 0.9 %; Lymphocytes # (auto) 5.12 K/uL (1.2-3.4); Lymphocytes % (auto) 41.3 %; Monocytes # (auto) 0.51 K/uL (0.11-0.59); Monocytes % (auto) 4.1 %; Neutrophils # (auto) 6.25 K/uL (1.40-6.50); Neutrophils % (auto) 50.3 %
[2022-12-10] MEDS: FLUoxetine HCL 20 MG CAP PO SCH (17:19)
[2022-12-10] MEDS ORDERED: haloperidoL 5 MG TAB PO SCH (21:00)
[2022-12-10] MEDS: PANTOprazole 40 MG TAB PO SCH (22:04)
[2022-12-11] MEDS: FLUoxetine HCL 20 MG CAP PO SCH (08:29)
[2022-12-11] MEDS: metFORMIN HCL 500 MG TAB PO SCH ×2 (08:29→17:24)
[2022-12-11] MEDS: PANTOprazole 40 MG TAB PO SCH ×2 (08:29→21:15)
[2022-12-11 08:45] LABS: Basophils # (auto) 0.04 K/uL (0-0.2); Basophils % (auto) 0.4 %; Eosinophils # (auto) 0.38 K/uL (0-0.50); Eosinophils % (auto) 3.4 %; Hemoglobin 12.6 g/dl (12.0-16.0); Immature Granulocytes # (auto) 0.09 K/uL (0.01-0.20); Immature Granulocytes % (auto) 0.8 %; Lymphocytes # (auto) 4.19 K/uL (1.2-3.4); Mean Corpuscular Hemoglobin 30.6 pg (25.0-34.0); Mean Corpuscular Volume 87.4 fL (80.0-100.0); Mean Platelet Volume 9.9 fL (9.4-12.4); Monocytes # (auto) 0.59 K/uL (0.11-0.59); Monocytes % (auto) 5.4 %; Neutrophils # (auto) 5.73 K/uL (1.40-6.50); Platelet Count 360 K/uL (130-400); RDW Coefficient of Variation 11.8 % (11.5-14.5); RDW Standard Deviation 37.3 fL (36.4-46.3); Red Blood Count 4.12 M/uL (4.20-5.40); White Blood Count 11.02 K/ul (4.8-10.8)
[2022-12-11 09:09] LABS: Albumin Level 3.9 gm/dl (3.4-5.0); BUN Creatinine Ratio 16.7 (10-20); Calcium 9.1 mg/dl (8.6-10.3); Creatinine Clr Calc Pharmacy 137.3 ml/min; Est GFR (African American) 132.6 ml/min; Est GFR (Non-African American) 114.4 ml/min; Magnesium 1.6 mg/dl (1.7-2.4); Phosphorus 3.1 mg/dl (2.5-4.9)
[2022-12-11 09:10] LABS: Chol HDL Ratio 4.7 (0-5)
[2022-12-11] MEDS ORDERED: SUMAtriptan succinate 100 MG TAB PO ONE (09:20)
[2022-12-11] MEDS ORDERED: SUMAtriptan succinate 100 MG TAB PO PRN (13:15)
[2022-12-11] MEDS ORDERED: LORazepam 2 MG/1 ML VIAL IV PRN (13:22)
--- NOTE | 2022-12-11 13:40 | Psychiatric Progress Note ---
Date of Service December 11, 2022 Impression / Recommendations Impression 36 yo woman with multiple psychiatric co-morbidities and periods of chronic intermittent SI, disordered eating and self-harm related to boderline personality disorder which increased symptoms of depression, trauma, and BPD in context of recent breakup with her . 12/11/2022: Mood improving, no longer with SI or thoughts of self-harm. Still having some hallucinations, these seem to be related to PTSD and/or BPD as no evidence for faye or primary psychotic disorder. She would like to increase haldol to further target these hallucinations. Tolerating haldol and fluoxetine well. Acute risk of self-harm is now low given denial of SI and future-oriented and working on coping skills. Reviewed fsting lipid panel notable for elevated TGs and cholesterol, states she follows with her PCP for this and has taken Lipitor in the past and will discuss starting this again. (1) Suicidal ideation: (2) Anxiety and depression: (3) Borderline personality disorder: (4) Bipolar disorder: (5) Post traumatic stress disorder (PTSD): (6) COVID-19: Plan -Discontinue 1-on-1 and suicide risk precautions, ok to have normal tray for meals -May leave AMA, no longer meets 302 criteria -Will increase haldol 7.5mg HS to further target hallucinations -Shift to fluoxetine 20mg HS as she finds this sedating -Topiramate 100mg BID restarted for her migraines -Outpatient therapist confirmed she or another provider within the practice will able to start seeing Doris for weekly sessions Risk Factors Assessment Do You Have Access To A Gun?: No Protective Factors Assessment Employed: No (On disability) Interval History Identifying Information 36 yo woman who lives with partners in [place] with history of anxiety, depression, PTSD, bipolar disorder, borderline personality disorder and psychogenic nonepileptic seizures admitted medically due to COVID+ status after presenting for SI with plans. Chief Complaint "Much better". Review of Systems Notes sleeping and eating well Subjective Subjective Patient was seen & assessed and interval progress reviewed. I woke up I wasn't suicidal or self-harming but just now I had a headache and so felt stressed and had a non-epileptic seizure. She notes she is coloring and this is helping her cope. She notes she is still hallucinating "random movements" and "hearing things like the TV but mine isn't". But she has been able to reality-test this. She has seen bugs and can also reality-test this. She states that being on antipsychotics in the past has treated the hallucinations. No side effects from either medication. She's been going through the handbook and read 90%. Physical Exam Psychiatric Orientation: alert and oriented x 3 Speech: normal rate/rhythm/volume of speech Mood: + anxious mood Thought Process: linear/logical thought process Thought Content: reality based without delusions Suicidal Thoughts: denies suicidal thoughts and denies suicidal plan Homicidal Thoughts: denies homicidal thoughts, denies homicidal plan and denies homicidal intent Hallucinations: + auditory hallucinations and + visual hallucinations (seeing shadows and bugs); no tactile hallucinations and no gustatory hallucinations Cognition: recent memory grossly intact and remote memory grossly intact Insight: + fair insight Judgment: + limited judgement Vital Signs (Past 24 Hours) Last Vital Signs Temp 36.6 C 12/11/22 13:22 Pulse 88 12/11/22 13:22 Resp 18 12/11/22 13:22 BP 123/80 12/11/22 13:22 Pulse Ox 98 12/11/22 13:22 O2 Del Method Room Air 12/11/22 13:22 Results & Data ([facility]) Laboratory Results Laboratory Results - last 24 hr 12/10/22 12/10/22 12/10/22 14:23 14:23 22:10 WBC 12.41 H RBC 4.27 Hgb 12.9 Hct 37.3 MCV 87.4 MCH 30.2 MCHC 34.6 RDW Std Deviation 37.4 RDW Coeff of Nerissa 11.9 Plt Count 392 MPV 10.0 Immature Gran % (Auto) 0.9 Neut % (Auto) 50.3 Lymph % (Auto) 41.3 Allen % (Auto) 4.1 Eos % (Auto) 3.1 Baso % (Auto) 0.3 Neut # (Auto) 6.25 Lymph # (Auto) 5.12 H Allen # (Auto) 0.51 Eos # (Auto) 0.38 Baso # (Auto) 0.04 Immature Gran # (Auto) 0.11 Sodium 135 L Potassium 3.5 Chloride 101 Carbon Dioxide 26 Anion Gap 8 BUN 12 Creatinine 0.62 Est Cr Clr Drug Dosing 146.2 Est GFR ( Amer) 135.4 Est GFR (Non-Af Amer) 116.8 BUN/Creatinine Ratio 19.4 Glucose 215 H POC Glucose 170 H Calcium 9.1 Phosphorus 3.0 Magnesium 1.6 L Albumin 3.9 Triglycerides Cholesterol LDL Cholesterol, Calc VLDL Cholesterol, Calc HDL Cholesterol Cholesterol/HDL Ratio 12/11/22 12/11/22 12/11/22 07:28 08:09 08:09 WBC 11.02 H RBC 4.12 L Hgb 12.6 Hct 36.0 L MCV 87.4 MCH 30.6 MCHC 35.0 RDW Std Deviation 37.3 RDW Coeff of Nerissa 11.8 Plt Count 360 MPV 9.9 Immature Gran % (Auto) 0.8 Neut % (Auto) 52.0 Lymph % (Auto) 38.0 Allen % (Auto) 5.4 Eos % (Auto) 3.4 Baso % (Auto) 0.4 Neut # (Auto) 5.73 Lymph # (Auto) 4.19 H Allen # (Auto) 0.59 Eos # (Auto) 0.38 Baso # (Auto) 0.04 Immature Gran # (Auto) 0.09 Sodium 136 Potassium 4.0 Chloride 103 Carbon Dioxide 25 Anion Gap 8 BUN 11 Creatinine 0.66 Est Cr Clr Drug Dosing 137.3 Est GFR ( Amer) 132.6 Est GFR (Non-Af Amer) 114.4 BUN/Creatinine Ratio 16.7 Glucose 222 H POC Glucose 200 H Calcium 9.1 Phosphorus 3.1 Magnesium 1.6 L Albumin 3.9 Triglycerides Cholesterol LDL Cholesterol, Calc VLDL Cholesterol, Calc HDL Cholesterol Cholesterol/HDL Ratio 12/11/22 12/11/22 08:09 11:39 WBC RBC Hgb Hct MCV MCH MCHC RDW Std Deviation RDW Coeff of Nerissa Plt Count MPV Immature Gran % (Auto) Neut % (Auto) Lymph % (Auto) Allen % (Auto) Eos % (Auto) Baso % (Auto) Neut # (Auto) Lymph # (Auto) Allen # (Auto) Eos # (Auto) Baso # (Auto) Immature Gran # (Auto) Sodium Potassium Chloride Carbon Dioxide Anion Gap BUN Creatinine Est Cr Clr Drug Dosing Est GFR ( Amer) Est GFR (Non-Af Amer) BUN/Creatinine Ratio Glucose POC Glucose 196 H Calcium Phosphorus Magnesium Albumin Triglycerides 238 H Cholesterol 212 H LDL Cholesterol, Calc 119 VLDL Cholesterol, Calc 48 H HDL Cholesterol 45 Cholesterol/HDL Ratio 4.7 Current Inpatient Medications Current Inpatient Medications: Current Inpatient Medications Acetaminophen (Acetaminophen 325 Mg Tab) 650 mg PO Q4H PRN PRN Reason: pain/fever Stop: 01/09/23 01:07 Dextrose (Dextrose 50% 50 Ml Syringe) 25 - 50 ml IV UD PRN; Protocol PRN Reason: Hypoglycemia Protocol Stop: 01/09/23 01:07 Fluoxetine HCl (Fluoxetine Hcl 20 Mg Cap) 20 mg PO QAM [facility] Stop: 01/09/23 16:14 Last Admin: 12/11/22 08:29 Dose: 20 mg Glucagon (Glucagon For Inj 1 Mg Vial) 1 mg SQ UD PRN; Protocol PRN Reason: Hypoglycemia Protocol Stop: 01/09/23 01:07 Glucose (Glucose 10 Tab/Tube) 4 - 8 tab PO UD PRN; Protocol PRN Reason: Hypoglycemia Treatment Stop: 01/09/23 01:07 Glucose (Glucose 40% Gel 15 Gm Tube) 15 - 30 gm PO UD PRN; Protocol PRN Reason: Hypoglycemia Protocol Stop: 01/09/23 01:07 Haloperidol (Haloperidol 5 Mg Tab) 5 mg PO HS [facility] Stop: 01/09/23 20:59 Last Admin: 12/10/22 22:04 Dose: 5 mg Lorazepam (Lorazepam 2 Mg/1 Ml Vial) 2 mg IV Q1H PRN PRN Reason: seizure Stop: 01/10/23 13:21 Metformin HCl (Metformin Hcl 500 Mg Tab) 500 mg PO BIDM [facility] Stop: 01/09/23 07:59 Last Admin: 12/11/22 08:29 Dose: 500 mg Miscellaneous (Carbohydrates For Hypoglycemia ) 15 - 30 gm PO UD PRN PRN Reason: Hypoglycemia Protocol Stop: 01/09/23 01:07 Ondansetron HCl (Ondansetron Inj 2 Mg/Ml 2 Ml Vial) 4 mg IV Q6H PRN PRN Reason: Nausea Stop: 01/09/23 01:07 Pantoprazole Sodium (Pantoprazole 40 Mg Tab) 40 mg PO BID [facility] Stop: 01/09/23 20:59 Last Admin: 12/11/22 08:29 Dose: 40 mg Sumatriptan Succinate (Sumatriptan Succinate 100 Mg Tab) 100 mg PO DAILY PRN PRN Reason: Migraine Headache Stop: 01/10/23 13:14 Topiramate (Topiramate 100 Mg Tab) 100 mg PO BID [facility] Stop: 01/10/23 20:59 Mental Health & Subst Abuse Tx Therapist Name of Therapist: Jason Clemons Therapist's ext [phone] Date of Therapist Appointment: 12/17/22 Time of Therapist Appointment: 2:00 PM Therapy Appointment Comment: [phone], [place] [phone] Wheel [employer] Operator Name of Wheel Mill Operator: None
--- NOTE | 2022-12-11 14:16 | Hospitalist Progress Note ---
Date of Service December 11, 2022 Assessment & Plan (1) Suicidal ideation: Plan: Supportive care. Behavioral health consult and recommendations appreciated. She is now on Haldol and fluoxetine. Probable return to inpatient psych facility (2) Seizure: Plan: The patient states she had a seizure that was not witnessed by me. Considering her psychiatric history, this could be a pseudoseizure. Nevertheless, EEG ordered along with neurology consultation. IV Ativan as needed (3) Diabetes mellitus: Plan: Refusing insulin coverage. ADA diet. Resumed metformin. Sliding scale coverage if she will allow it (4) Hyperlipidemia: Plan: Stable. Continue current medical manage (5) Anxiety and depression: Plan: Appreciate psychiatry evaluation and recommendations. She is now on Haldol and fluoxetine (6) GERD (gastroesophageal reflux disease): Plan: Stable. Continue PPI therapy (7) COVID-19: Plan: Positive test but asymptomatic. She is not exhibiting any symptoms of a viral illness. Isolation precautions have been discontinued (8) Ankle pain, left: Plan: Chronic. She wears a walking boot (9) Bipolar disorder: Plan: By history. Psychiatry consultation and recommendations appreciated. (10) Borderline personality disorder: Plan: By history. Psychiatry consultation and recommendations appreciated. Plan Anticipate discharge back to inpatient psychiatric facility. Admission and Anticipated Discharge Date Admission Date: December 10, 2022 Subjective The patient requested her Topamax be restarted which she takes for seizures. She uses sumatriptan hand as needed. Isolation precautions are discontinued. She has no symptoms of viral illness despite nasal swab COVID positivity on admission which is meaningless in my opinion in an asymptomatic patient. She states she had a seizure that was not witnessed by me. Due to her psychiatric history, this could be pseudoseizure activity. Nevertheless, I am obligated to get neurology consult and a EEG evaluation. Psychiatry entry noted Review of Systems Review of Systems: Constitutional-no fever or chills ENT-no blurred vision, no double vision, no epistaxis, no sore throat Respiratory-no cough, no wheezing, no shortness of breath Cardiac-no palpitations, no chest pain, no syncope GI-no nausea, vomiting, diarrhea, melena, hematochezia -no urinary retention, no urinary incontinence, no dysuria, no hematuria Musculoskeletal-no joint pain, no muscle tenderness Skin-no bruising, no rashes, no pruritus Neuro-no isolated weakness, no paresthesia Psych- depressed affect. Suicidal ideation Physical Exam Physical Exam: General-alert and oriented x3, no fevers, no chills HEENT-head atraumatic and normocephalic, pupils equal and reactive to light, extraocular muscles intact Neck-no lymphadenopathy or thyromegaly, trachea midline Chest-clear to auscultation percussion. No rales wheezing or rhonchi Cardiac-regular rate and rhythm, normal S1 and S2 Abdomen-normal bowel sounds, nontender, no hepatosplenomegaly Extremities-no cyanosis, clubbing, or edema Neuro-cranial nerves II through XII intact, motor and sensory function within normal limits, strength symmetrical , no focal deficits Psych-depressed affect. Suicidal ideation Results & Data Results & Data Vital Signs (Past 12 Hours) Vital Signs Temp Pulse Resp BP BP Pulse Ox O2 Del Method 12/11/22 13:22 36.6 C 88 18 123/80 98 Room Air 12/11/22 07:31 36.6 C 82 18 114/77 95 Room Air Laboratory Results 12/11/22 08:09 12/11/22 08:09 PG Care Time/CCT Total # of Minutes Spent Total Time Spent with Patient: Total time spent is greater than 50% in coordination of care (as documented) at patient's floor/unit and/or counseling patient: Coding Level of Care Code 07577 SUB INP/OBS CARE 3/50MIN Diagnoses Suicidal ideation R45.851 Seizure R56.9 Diabetes mellitus E11.9; Z79.4 Diabetes mellitus complication status: without complication Diabetes mellitus senior living insulin use: with senior living use Diabetes mellitus type: type 2 Hyperlipidemia E78.5 Anxiety and depression F41.9; F32.A GERD (gastroesophageal reflux disease) K21.9 COVID-19 U07.1 Ankle pain, left M25.572 Bipolar disorder F31.9 Borderline personality disorder F60.3 (3) Diabetes mellitus Diabetes mellitus complication status: without complication Diabetes mellitus ferry terminal supervisor insulin use: with ferry terminal supervisor use Diabetes mellitus type: type 2 Qualified Code(s): E11.9 - Type 2 diabetes mellitus without complications; Z79.4 - detention (current) use of insulin
--- NOTE | 2022-12-11 14:45 | Neurology Consultation ---
Date of Consultation December 11, 2022 Assessment & Plan (1) Nonspecific paroxysmal spell: Patient has a history of PNEA and had her typical stress related spell today. No concern for epilepsy, no further testing or treated recommended. Please contact us with any further questions. Telehealth Consultation Telehealth Information Telehealth Information: I performed this visit using a real-time telehealth connection between my location and the patients location ([facility]). After connecting through interactive tele-video, patient was identified by name and date of and/or wristband check.Patient (or authorized healthcare personnel representative) was informed that this was a telemedicine visit and it was being conducted confidentially over secure lines. My office door was closed and no o ne else was present in the room with me.Patient (or authorized healthcare personnel representative) provided consent to proceed with the visit, expressed an understanding of privacy and security of the telemedicine visit, and gave permission to have a hospital personnel representative in the room in order to assist with the visit and to conduct portions of the visit, as needed. I informed the patient (or authorized healthcare personnel representative) that I reviewed their record and presented the opportunity for them to ask any questions regarding the visit today. The patient agreed to participate. History of Present Illness Reason for Consultation: Spells Requesting Physician: Dr. Okeefe Attending Physician: Obey Okeefe MD History of Present Illness Doris Fonseca is a 36 yo F with a history of PNEA diagnosed at [facility] with a negative LTM EEG that captured and episode. The patient reports that she has shaking episodes with stress. She is aware of the episodes and feels that IV ativan is beneficial during the attacks. She understands these are not electrographic seizures and is not on any seizure medication. Today she had a migraine which caused an episode and then worsened her migraine. Denies any difference than her typical episodes which can last up to an hour. Allergies Allergy/AdvReac Type Severity Reaction Status Date / Time Penicillins Allergy Vomiting Verified 12/09/22 20:57 Home Medications Medication Instructions Recorded Confirmed Type Lamictal 150 mg PO BID 12/09/22 12/09/22 History aripiprazole 20 mg tablet (Abilify) 20 mg PO QAM 12/09/22 12/09/22 History atorvastatin 20 mg PO 1XD 12/09/22 12/09/22 History buspirone 10 mg tablet 10 mg PO TID 12/09/22 12/09/22 History meloxicam 15 mg PO 1XD 12/09/22 12/09/22 History metformin 500 mg tablet 500 mg PO BID 12/09/22 12/09/22 History mirtazapine 0.5 - 1 tab PO HS 12/09/22 12/09/22 History naltrexone See Rx Instructions .Route .COMPLEX 12/09/22 12/09/22 History paroxetine HCl 60 mg PO 1XD Anxiety 12/09/22 12/09/22 History topiramate 100 mg PO BID 12/09/22 12/09/22 History Patient History Medical History Ankle pain, left Anxiety and depression Bipolar disorder Borderline personality disorder Diabetes mellitus GERD (gastroesophageal reflux disease) Hyperlipidemia Suicidal ideation Social History Smoking Status: Never smoker Second Hand Exposure: No; Do You Dip or Chew Tobacco: No; Hx Alcohol Use: Yes Hx Substance Use: Yes Last Used Substance: Days (ago) Preferred Language: Indian Communication Ability: Effective Cabin Service Agent Required: No Beliefs That Will Affect Care: Nondenominational Nondenominational Beliefs: don't eat pork Current Living Situation: Significant Other Current Living Situation Comment: Girlfriend, boyfriend and ex Other Information That Helps Us Care for You: No Feels Safe at Home: Yes Safety Concerns: Feels Safe At This Time Gender Identity: Female Assistive Devices: None Assistive Devices Comment: brace Review of Systems +spell Physical Exam Neurological Examination: Mental Status: Awake and alert. Oriented to person, place, and time. Fluent. Comprehension intact. Affect appropriate. Cranial Nerves: II: pupils 3/3 to 2/2 III/IV/: Versions intact without nystagmus, no gaze preference. V: Facial sensation symmetric to light touch VII: Facial expression symmetric VIII: Hearing intact to voice IX/X: Palate elevates symmetrically Motor: Strength was symmetric and antigravity throughout. There were no abnormal movements. Reflexes: Unable to assess over telemedicine Results & Data Vital Signs (Past 12 Hours) Vital Signs Temp Pulse Resp BP BP Pulse Ox O2 Del Method 12/11/22 13:22 36.6 C 88 18 123/80 98 Room Air 12/11/22 07:31 36.6 C 82 18 114/77 95 Room Air Laboratory Results Abnormal lab results 12/10/22 12/10/22 12/10/22 Range/Units 14:23 14:23 22:10 WBC (4.8-10.8) K/ul RBC (4.20-5.40) M/uL Hct (37.0-47.0) % Lymph # (Auto) 5.12 H (1.2-3.4) K/uL Sodium 135 L (136-145) mmol/L Glucose 215 H (70-99(Fasting)) mg/dl POC Glucose 170 H (70-99) mg/dl Magnesium 1.6 L (1.7-2.4) mg/dl Triglycerides (0-150) mg/dl Cholesterol (0-200) mg/dl VLDL Cholesterol, Calc (0-30) mg/dl 12/11/22 12/11/22 12/11/22 Range/Units 07:28 08:09 08:09 WBC 11.02 H (4.8-10.8) K/ul RBC 4.12 L (4.20-5.40) M/uL Hct 36.0 L (37.0-47.0) % Lymph # (Auto) 4.19 H (1.2-3.4) K/uL Sodium (136-145) mmol/L Glucose 222 H (70-99(Fasting)) mg/dl POC Glucose 200 H (70-99) mg/dl Magnesium 1.6 L (1.7-2.4) mg/dl Triglycerides (0-150) mg/dl Cholesterol (0-200) mg/dl VLDL Cholesterol, Calc (0-30) mg/dl 12/11/22 12/11/22 Range/Units 08:09 11:39 WBC (4.8-10.8) K/ul RBC (4.20-5.40) M/uL Hct (37.0-47.0) % Lymph # (Auto) (1.2-3.4) K/uL Sodium (136-145) mmol/L Glucose (70-99(Fasting)) mg/dl POC Glucose 196 H (70-99) mg/dl Magnesium (1.7-2.4) mg/dl Triglycerides 238 H (0-150) mg/dl Cholesterol 212 H (0-200) mg/dl VLDL Cholesterol, Calc 48 H (0-30) mg/dl
[2022-12-11] MEDS ORDERED: haloperidoL 5 MG TAB PO SCH (21:00)
[2022-12-11] MEDS: TOPIRAMATE 100 MG TAB PO SCH (21:15)
[2022-12-12 06:30] LABS: Basophils # (auto) 0.05 K/uL (0-0.2); Basophils % (auto) 0.4 %; Eosinophils # (auto) 0.52 K/uL (0-0.50); Eosinophils % (auto) 4.3 %; Hematocrit (blood only) 36.8 % (37.0-47.0); Hemoglobin 12.9 g/dl (12.0-16.0); Immature Granulocytes # (auto) 0.08 K/uL (0.01-0.20); Immature Granulocytes % (auto) 0.7 %; Lymphocytes # (auto) 4.78 K/uL (1.2-3.4); Lymphocytes % (auto) 39.6 %; Mean Corpuscular Hemoglobin 30.6 pg (25.0-34.0); Mean Corpuscular Hgb Conc 35.1 g/dL (32.0-36.0); Mean Corpuscular Volume 87.2 fL (80.0-100.0); Mean Platelet Volume 9.8 fL (9.4-12.4); Monocytes # (auto) 0.78 K/uL (0.11-0.59); Monocytes % (auto) 6.5 %; Neutrophils # (auto) 5.86 K/uL (1.40-6.50); Neutrophils % (auto) 48.5 %; Platelet Count 340 K/uL (130-400); RDW Coefficient of Variation 11.9 % (11.5-14.5); RDW Standard Deviation 37.3 fL (36.4-46.3); Red Blood Count 4.22 M/uL (4.20-5.40); White Blood Count 12.07 K/ul (4.8-10.8)
[2022-12-12 06:40] LABS: Albumin Level 3.8 gm/dl (3.4-5.0); BUN Creatinine Ratio 18.6 (10-20); Calcium 9.3 mg/dl (8.6-10.3); Creatinine Clr Calc Pharmacy 129.5 ml/min; Est GFR (African American) 130.1 ml/min; Est GFR (Non-African American) 112.3 ml/min; Magnesium 1.8 mg/dl (1.7-2.4); Phosphorus 3.9 mg/dl (2.5-4.9)
[2022-12-12] MEDS: PANTOprazole 40 MG TAB PO SCH (08:41)
[2022-12-12] MEDS: metFORMIN HCL 500 MG TAB PO SCH (08:41)
[2022-12-12] MEDS: TOPIRAMATE 100 MG TAB PO SCH (08:41)
[2022-12-12 09:02] LABS: Marijuana Quant, GCMS Urine 87 ng/mL (<5)
--- NOTE | 2022-12-12 09:23 | Psychiatric Progress Note ---
Date of Service December 12, 2022 Impression / Recommendations Impression 36 yo woman with multiple psychiatric co-morbidities and periods of chronic intermittent SI, disordered eating and self-harm related to boderline personality disorder which increased symptoms of depression, trauma, and BPD in context of recent breakup with her . 12/12/2022: Mood has remained stable, sleep is improved and she has responded well to start of haldol and fluoxetine. She is looking forward to increasing to weekly therapy after discharge. In short safety was maintained and the patient was cooperative with care. Medication changes included initiation of haldol 7.5mg HS for complex PTSD vs BPD related hallucinations and off-label for BPAD as well as fluoxetine 20mg HS po for depression, PTSD and anxiety and they tolerated this well. A safety plan was completed prior to discharge. She actively and insightfully participated in safety planning and in discussions about ways to seek support and recognizing warning signs and utilizing coping skills. Reviewed importance of seeking emergency care should SI intensify, worsen or should they feel unsafe in the future which they agree to do. On the day of discharge she stated her mood was "good and ready to go" and remained future-oriented including spending time with supports, listening to music and engaging in aftercare appointments for psychiatry and therapy. Today the patient voices readiness for discharge. They note improvement in mood and anxiety. They deny thoughts of harm to self or others. Thoughts are organized and they are clinically improved from admission. There is no evidence of psychosis. They improved in the hospital with support and medication adjustments. They agree to take medications as prescribed and keep follow-up appointments. At the time of the discharge they are deemed to be stable and appropriate for outpatient level of care. They are not deemed to be at imminent risk of harm to self or others. They are aware of emergency and crisis services. Knows to call 911 or go to nearest emergency care center if in a crisis which cannot be handled as an outpatient. Acute risk is low given improvement in mood and denial of SI, lack of access to lethal means, improvement in sleep, hopefulness and improvement in hallucinations. Chronic risk is moderate to high given multiple non-modifiable risk factors: psychiatric co-morbid diagnoses, periods of impulsivity, prior attempt, hx self-harm, emotional reactivity, prior psychiatric hospitalizations, mood disorder, cluster B personality disorder, trauma but also with protective factors including: good social support, sense of responsibility to family and social supports, outpatient care in place, positive coping skills, positive problem solving, capacity to establish therapeutic alliance, willingness to engage with treatment and capacity for self-observation. Counseled on ways to reduce acute and chronic risk including engaging with outpatient providers, using safety plan if needed, utilizing supports, taking medication, and using coping skills. Modifiable risk factors of SI and depression were addressed during hospitalization through development of new coping skills, safety planning, and medication adjustments. Acute risk of harm to others is low as she denies HI, no aggression or agitation during hospitalization, and mood improved. Chronic risk is low given no known history of prior violence, no acces to lethal means. (1) Anxiety and depression: (2) Borderline personality disorder: (3) Bipolar disorder: (4) Post traumatic stress disorder (PTSD): (5) COVID-19: Plan -Safe for discharge from psychiatric standpoint -Continue haldol 7.5mg HS and fluoxetine 20mg HS -Topiramate 100mg BID restarted for her migraines -Safety plan completed and reviewed with psych liason -She has follow-up therapy and psychiatry Risk Factors Assessment Do You Have Access To A Gun?: No Protective Factors Assessment Employed: No (On disability) Interval History Identifying Information 36 yo woman who lives with partners in [place], [place] with history of anxiety, depression, PTSD, bipolar disorder, borderline personality disorder and psychogenic nonepileptic seizures admitted medically due to COVID+ status after presenting for SI with plans. Chief Complaint "Good". Review of Systems Notes sleeping and eating well Subjective Subjective Patient was assessed and interval progress reviewed. Slept really well last night "the best I've slept in so long". She has not had any further SI or self- harm in two days. She completed her safety plan. Her boyfriend is able to pick her up today. She is looking forward to listening to music and spending time with friends and partners after discharge. No medication side effects. No symptoms of psychosis. Physical Exam Psychiatric Orientation: alert and oriented x 3 Speech: normal rate/rhythm/volume of speech Mood: no depressed mood and no anxious mood Thought Process: linear/logical thought process Thought Content: reality based without delusions Suicidal Thoughts: denies suicidal thoughts Homicidal Thoughts: denies homicidal thoughts, denies homicidal plan and denies homicidal intent Hallucinations: no auditory hallucinations, no visual hallucinations, no tactile hallucinations and no gustatory hallucinations Cognition: recent memory grossly intact and remote memory grossly intact Insight: + fair insight Judgment: + fair judgement Vital Signs (Past 24 Hours) Last Vital Signs Temp 36.6 C 12/12/22 07:52 Pulse 82 12/12/22 07:52 Resp 18 12/12/22 07:52 BP 116/79 12/12/22 07:52 Pulse Ox 95 12/12/22 07:52 O2 Del Method Room Air 12/12/22 07:52 Results & Data ([facility]) Laboratory Results Laboratory Results - last 24 hr 12/09/22 12/11/22 12/11/22 19:42 11:39 17:02 WBC RBC Hgb Hct MCV MCH MCHC RDW Std Deviation RDW Coeff of Nerissa Plt Count MPV Immature Gran % (Auto) Neut % (Auto) Lymph % (Auto) Hughes % (Auto) Eos % (Auto) Baso % (Auto) Neut # (Auto) Lymph # (Auto) Hughes # (Auto) Eos # (Auto) Baso # (Auto) Immature Gran # (Auto) Sodium Potassium Chloride Carbon Dioxide Anion Gap BUN Creatinine Est Cr Clr Drug Dosing Est GFR ( Amer) Est GFR (Non-Af Amer) BUN/Creatinine Ratio Glucose POC Glucose 196 H 198 H Calcium Phosphorus Magnesium Albumin U Marijuana THC Carboxy 87 H Drug Screen Comment SEE NOTE 12/11/22 12/12/22 12/12/22 21:20 05:41 05:41 WBC 12.07 H RBC 4.22 Hgb 12.9 Hct 36.8 L MCV 87.2 MCH 30.6 MCHC 35.1 RDW Std Deviation 37.3 RDW Coeff of Nerissa 11.9 Plt Count 340 MPV 9.8 Immature Gran % (Auto) 0.7 Neut % (Auto) 48.5 Lymph % (Auto) 39.6 Hughes % (Auto) 6.5 Eos % (Auto) 4.3 Baso % (Auto) 0.4 Neut # (Auto) 5.86 Lymph # (Auto) 4.78 H Hughes # (Auto) 0.78 H Eos # (Auto) 0.52 H Baso # (Auto) 0.05 Immature Gran # (Auto) 0.08 Sodium 137 Potassium 4.0 Chloride 104 Carbon Dioxide 23 Anion Gap 10 BUN 13 Creatinine 0.70 Est Cr Clr Drug Dosing 129.5 Est GFR ( Amer) 130.1 Est GFR (Non-Af Amer) 112.3 BUN/Creatinine Ratio 18.6 Glucose 203 H POC Glucose 176 H Calcium 9.3 Phosphorus 3.9 Magnesium 1.8 Albumin 3.8 U Marijuana THC Carboxy Drug Screen Comment 12/12/22 07:54 WBC RBC Hgb Hct MCV MCH MCHC RDW Std Deviation RDW Coeff of Nerissa Plt Count MPV Immature Gran % (Auto) Neut % (Auto) Lymph % (Auto) Hughes % (Auto) Eos % (Auto) Baso % (Auto) Neut # (Auto) Lymph # (Auto) Hughes # (Auto) Eos # (Auto) Baso # (Auto) Immature Gran # (Auto) Sodium Potassium Chloride Carbon Dioxide Anion Gap BUN Creatinine Est Cr Clr Drug Dosing Est GFR ( Amer) Est GFR (Non-Af Amer) BUN/Creatinine Ratio Glucose POC Glucose 183 H Calcium Phosphorus Magnesium Albumin U Marijuana THC Carboxy Drug Screen Comment Current Inpatient Medications Current Inpatient Medications: Current Inpatient Medications Acetaminophen (Acetaminophen 325 Mg Tab) 650 mg PO Q4H PRN PRN Reason: pain/fever Stop: 01/09/23 01:07 Dextrose (Dextrose 50% 50 Ml Syringe) 25 - 50 ml IV UD PRN; Protocol PRN Reason: Hypoglycemia Protocol Stop: 01/09/23 01:07 Fluoxetine HCl (Fluoxetine Hcl 20 Mg Cap) 20 mg PO HS ROGER Stop: 01/11/23 20:59 Glucagon (Glucagon For Inj 1 Mg Vial) 1 mg SQ UD PRN; Protocol PRN Reason: Hypoglycemia Protocol Stop: 01/09/23 01:07 Glucose (Glucose 10 Tab/Tube) 4 - 8 tab PO UD PRN; Protocol PRN Reason: Hypoglycemia Treatment Stop: 01/09/23 01:07 Glucose (Glucose 40% Gel 15 Gm Tube) 15 - 30 gm PO UD PRN; Protocol PRN Reason: Hypoglycemia Protocol Stop: 01/09/23 01:07 Haloperidol (Haloperidol 5 Mg Tab) 7.5 mg PO HS ROGER Stop: 01/10/23 20:59 Last Admin: 12/11/22 21:15 Dose: 7.5 mg Lorazepam (Lorazepam 2 Mg/1 Ml Vial) 2 mg IV Q1H PRN PRN Reason: seizure Stop: 01/10/23 13:21 Metformin HCl (Metformin Hcl 500 Mg Tab) 500 mg PO BIDM ROGER Stop: 01/09/23 07:59 Last Admin: 12/12/22 08:41 Dose: 500 mg Miscellaneous (Carbohydrates For Hypoglycemia ) 15 - 30 gm PO UD PRN PRN Reason: Hypoglycemia Protocol Stop: 01/09/23 01:07 Ondansetron HCl (Ondansetron Inj 2 Mg/Ml 2 Ml Vial) 4 mg IV Q6H PRN PRN Reason: Nausea Stop: 01/09/23 01:07 Pantoprazole Sodium (Pantoprazole 40 Mg Tab) 40 mg PO BID [facility] Stop: 01/09/23 20:59 Last Admin: 12/12/22 08:41 Dose: 40 mg Sumatriptan Succinate (Sumatriptan Succinate 100 Mg Tab) 100 mg PO DAILY PRN PRN Reason: Migraine Headache Stop: 01/10/23 13:14 Topiramate (Topiramate 100 Mg Tab) 100 mg PO BID [facility] Stop: 01/10/23 20:59 Last Admin: 12/12/22 08:41 Dose: 100 mg Mental Health & Subst Abuse Tx Therapist Name of Therapist: Jason Clemons Therapist's ext [phone] Date of Therapist Appointment: 12/17/22 Time of Therapist Appointment: 2:00 PM Therapy Appointment Comment: Yasemin Santiago, TOVA Lee [id number] Photograph Enlarger Name of Photograph Enlarger: None
--- NOTE | 2022-12-12 10:29 | Discharge Summary ---
Date of Service December 12, 2022 Admission HPI Per Admitting Provider The patient is a 36-year-old female with past medical history including diabetes mellitus, hyperlipidemia, bipolar disorder, borderline personality disorder, anxiety and depression, multiple admission for suicidal ideation at other facilities, who presents to the emergency department as noted above. She reports that she was recently in a mental health unit from November 28 through December 06, and since that time she has been home, has not taken any of her medications. She was brought to the emergency department due to concerns regarding suicidal ideation. Her COVID-19 screening test was positive, however, patient has no respiratory symptoms or otherwise referable to COVID-19. She does have severe reflux, and is not unable to lie backwards in bed due to severe substernal burning and sore throat. She also complains of ambulatory dysfunction ever since a failed orthopedic surgery on her left foot and ankle about 8 years ago. She describes her left ankle turns and twists on a regular basis when not wearing the boot. Principal Diagnosis Suicidal ideation, COVID nasal swab positivity without symptoms Discharge Exam General-alert and oriented x3, no fevers, no chills HEENT-head atraumatic and normocephalic, pupils equal and reactive to light, extraocular muscles intact Neck-no lymphadenopathy or thyromegaly, trachea midline Chest-clear to auscultation percussion. No rales wheezing or rhonchi Cardiac-regular rate and rhythm, normal S1 and S2 Abdomen-normal bowel sounds, nontender, no hepatosplenomegaly Extremities-no cyanosis, clubbing, or edema Neuro-cranial nerves II through XII intact, motor and sensory function within normal limits, strength symmetrical , no focal deficits Psych-depressed affect. Suicidal ideation Discharge Data Allergies Allergy/AdvReac Type Severity Reaction Status Date / Time Penicillins Allergy Vomiting Verified 12/09/22 20:57 Consultations 12/09/22 21:12 ED Decision to Admit Stat 12/10/22 00:04 Consult Psychiatry Routine 12/11/22 13:22 Consult Neurology Routine Hospital Course (1) Suicidal ideation: Supportive care. Behavioral health consult and recommendations appreciated. She is now on Haldol and fluoxetine. She has been cleared for discharge to home by psychiatry and will follow-up as an outpatient (2) Seizure: The patient states she had a seizure that was not witnessed by me. She has been evaluated by teleneurology. This is not tonic-clonic seizure activity. She does not need an EEG. (3) Diabetes mellitus: Refusing insulin coverage. ADA diet. Resumed metformin. Sliding scale coverage if she will allow it (4) Hyperlipidemia: Stable. Continue current medical manage (5) Anxiety and depression: Appreciate psychiatry evaluation and recommendations. She is now on Haldol and fluoxetine (6) GERD (gastroesophageal reflux disease): Stable. Continue PPI therapy (7) COVID-19: Positive test but asymptomatic. She is not exhibiting any symptoms of a viral illness. (8) Ankle pain, left: Chronic. She wears a walking boot (9) Bipolar disorder: By history. Psychiatry consultation and recommendations appreciated. (10) Borderline personality disorder: By history. Psychiatry consultation and recommendations appreciated. Plan She has been cleared by psychiatry for discharge to home today, December 12 Total Time Total Time Spent Total Time Spent (In Minutes): 45 minutes Discharge Plan Discharge Items Patient Disposition: Home - Self-Care Reason For Visit: SUICIDAL IDEATION Discharge Diagnosis: Suicidal ideation, COVID positivity by nasal swab without symptoms Activity: Resume your previous activity Non-emergency contact: Primary Care Provider Call non-emergency contact if: your symptoms worsen Follow-up/Referrals: Davey Bustillos DO [Primary Care Provider] - Diet: Regular Addtl Attending Provider Instructions: Take Haldol and fluoxetine at bedtime as prescribed by psychiatry. Follow-up with psychiatry as an outpatient Pending Studies at Discharge: No Stand-Alone Forms: [facility], Smoking Cessation Medications and DC Order Prescriptions: New haloperidol 5 mg Tablet 7.5 mg PO HS Qty: 3 0RF fluoxetine 20 mg Capsule 20 mg PO HS Qty: 30 0RF sumatriptan succinate 100 mg Tablet 100 mg PO DAILY PRNQty: 0 0RF Continued atorvastatin tablet 20 mg PO 1XD naltrexone See Rx Instructions .ROUTE .COMPLEX Rx Instructions: 50 mg orally with dinner paroxetine HCl 60 mg PO 1XD Lamictal 150 mg PO BID topiramate tablet 100 mg PO BID meloxicam tablet 15 mg PO 1XD metformin 500 mg Tablet 500 mg PO BID Discontinued mirtazapine 0.5 - 1 tab PO HS buspirone 10 mg tablet 10 mg PO TID aripiprazole [Abilify] 20 mg Tablet 20 mg PO QAM Discharge Orders: Discharge Order (Routine); Ordered 12/12/22 Ordered By: Obey Okeefe Admission Data Admit Date/Time: 12/10/22 00:04 Attending Provider: Obey Okeefe Admit Provider: Colt Reilly Primary Care Provider: Davey Bustillos Other Providers: Leslie Marroquin ; Charline Kessler ; Luis Felipe Reyes ; Colt Reilly Other Interventions: PSY Interdisciplinary Discharge Planning Last Done: 12/11/22 08:02 Coding Level of Care Code 97567 INP/OBS DISCH >30 MIN Diagnoses Suicidal ideation R45.851 Seizure R56.9 Diabetes mellitus E11.9; Z79.4 Diabetes mellitus complication status: without complication 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
[2022-12-12] MEDS ORDERED: FLUoxetine HCL 20 MG CAP PO SCH (21:00)
== END 2022-12-12 11:42 | disposition home or self-care (01) | DRG 880 ==
LOC: ED 19:18 → SUATTDRO 12-10 00:04 → INTOOBSV 12-10 00:04 → EDINP 12-10 00:04 → 3E 12-10 01:06